=== PATIENT | female | born 1980 | race Caucasian/White ===

== ENCOUNTER 2020-10-18 08:55 | Emergency (ER) | payer OTHER ==
[2014-06-05 11:37] VITALS: BP 119/68
[2020-10-18] MEDS ORDERED: KETOROLAC 15 MG/ML VIAL. IVP ONE (11:04)
[2020-10-18] MEDS ORDERED: diazePAM 5 MG TABLET. PO ONE (12:21)
[2020-10-18] MEDS ORDERED: diazePAM 5 MG TABLET. ONE (12:24)
--- NOTE | 2020-10-18 12:25 | EKG ---
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
[2020-10-18] MEDS ORDERED: CONTRAST GIVEN. MC PRN (12:30)
[2020-10-18] MEDS: IOHEXOL 300 MG/ML 75 ML VIAL. IV ONE (12:30)
--- NOTE | 2020-10-18 12:39 | RAD ---
XR CHEST 1V 10/18/2020 12:30 PM INDICATION: Left lower quadrant abdominal pain COMPARISON: None available TECHNIQUE: Portable frontal view of the chest is provided. FINDINGS: The cardiomediastinal silhouette is within normal limits. Mild hilar prominence which may represent p rominent pulmonary vasculature versus lymphadenopathy. Patchy consolidative changes identified the me dial left lung base. There are no significant pleural effusions. There is no pulmonary vascular congestion. No pneumothora x. No suspicious osseous abnormality. IMPRESSION: 1. Patchy consolidative changes identified the medial left lung base may represent developing pulmona ry infiltrate versus atelectasis. 2. Bilateral hilar prominence could reflect prominent pulmonary vasculature versus lymphadenopathy. Electronically signed by: Tali Burns MD (10/18/2020 12:36 PM) [id number]
[2020-10-18 13:03] LABS: BACTERIA,URINE FEW /HPF (0-FEW); BILIRUBIN,URINE NEG (NEG); CLARITY,URINE CLEAR; COLOR,URINE YELLOW; GLUCOSE,URINE NEG (NEG); NITRITE,URINE NEG (NEG); SQUAMOUS EPITHELIAL CELL,UR FEW /LPF; UROBILINOGEN,URINE 0.2 mg/dL (0.2 mg/dL); WBC,URINE OCC /HPF (0-4)
--- NOTE | 2020-10-18 13:18 | RAD ---
EXAM: CT Abdomen and Pelvis with IV contrast INDICATION: Reason: LLQ PAIN. Patient also complained of left upper quadrant sharp pain and pain in t he shoulder and a. TECHNIQUE: Multi-detector row CT images were acquired from the lung bases through the abdomen and pel vis with the use of IV contrast. Sagittal and coronal images were acquired from the transaxial data. All CT scans performed at this facility utilize dose optimization techniques as appropriate to the ex am, including the following: Automated exposure control and adjustment of the mA and/or KV according to patient size (this includes techniques or standardized protocols for targeted exams where dose is indication/reason for exam). IV CONTRAST: Administered ORAL CONTRAST: Not administered COMPARISON: None FINDINGS: LOWER CHEST: Calcified granuloma in the medial left lung base is present. Small focus of mucus pluggi ng in the anterior basal left lower lobe. Mild mosaic attenuation to the left lung base. LIVER: Unremarkable BILIARY SYSTEM: Gallbladder is surgically absent. Bile ducts are not dilated. PANCREAS: Unremarkable SPLEEN: Unremarkable ADRENALS: Unremarkable KIDNEYS & URETERS: Unremarkable BLADDER: Unremarkable REPRODUCTIVE ORGANS: An IUD is present in the retroflexed uterus. GASTROINTESTINAL: No findings of bowel obstruction or perforation. There is spasm of the large bowel involving the proximal ascending and the distal descending and sigmoid colon, mimicking wall thickeni ng. No pericolonic soft tissue stranding. The appendix is normal. MESENTERY/PERITONEUM/RETROPERITONEUM: A surgical clip abuts the greater curvature of the stomach dist ally. This could represent a migrated surgical clips postcholecystectomy. VASCULAR: Unremarkable LYMPH NODES: No adenopathy OSSEOUS & SOFT TISSUES: Unremarkable IMPRESSION: Spasmed large bowel, mimicking wall thickening. Correlate for any evidence of colitis or enteritis. O therwise no acute findings in the abdomen or pelvis post cholecystectomy and IUD placement. No specif ic cause in particular for left upper quadrant abdominal pain Electronically signed by: Dillan Boyle MD (10/18/2020 1:15 PM) [id number]
[2020-10-18 13:27] LABS: U PREG PATIENT NEGATIVE (NEG)
[2020-10-18 13:50] LABS: BASO # 0.1 x10^3/uL (0.0-0.2); BASO % 1 % (0-3); EOS # 0.1 x10^3/uL (0.0-0.7); EOS % 1 % (0-3); HEMATOCRIT 42.8 % (36.0-47.0); HEMOGLOBIN 14.2 g/dL (12.0-15.5); LYMPH # 2.9 x10^3/uL (1.0-4.8); LYMPH % 25 % (24-48); MEAN CORPUSCULAR HEMOGLOBIN 34 pg (25-35); MEAN CORPUSCULAR HGB CONC 33 g/dL (31-37); MEAN CORPUSCULAR VOLUME 102 fL (79-100); MONO # 0.4 x10^3/uL (0.0-1.1); MONO % 4 % (0-9); NEUT # 8.1 x10^3uL (1.8-7.7); NEUT % 70 % (31-73); PLATELET COUNT 272 x10^3/uL (140-400); RED BLOOD COUNT 4.18 x10^6/uL (3.50-5.40); RED CELL DISTRIBUTION WIDTH 13.3 % (11.5-14.5); WHITE BLOOD COUNT 11.6 x10^3/uL (4.0-11.0)
--- NOTE | 2020-10-18 14:18 | PHYS DOC ---
Past History Past Medical History: No Pertinent History Past Surgical History: Appendectomy, Cholecystectomy Alcohol Use: None Drug Use: None General Adult EDM: Chief Complaint: CHEST PAIN HPI: HPI: Patient is a [age] year old [sex] who presents with [] Current Medications: Current Meds: Current Medications Medications (Trade) Dose Ordered Sig/Roxane Start Time Stop Time Status Last Admin Dose Admin Diazepam (Valium) 7.5 mg 1X ONCE 10/18/20 12:21 10/18/20 12:58 DC Info (Do NOT chart on this entry -- for MONITORING) 1 each PRN DAILY PRN 10/18/20 12:30 10/20/20 12:29 Iohexol (Omnipaque 300 Mg/ml) 75 ml 1X ONCE 10/18/20 12:30 10/18/20 12:31 DC Ketorolac Tromethamine (Toradol 15mg Vial) 15 mg 1X ONCE 10/18/20 11:04 10/18/20 12:18 DC Allergies: Allergies: Allergies Coded Allergies Type Severity Reaction Last Updated Verified venom-honey bee Allergy Severe Anaphylaxis 06/03/14 No Uncoded Allergies Type Severity Reaction Last Updated Verified CHERRIES Allergy Mild HIVES 06/03/14 COCONUT Allergy Mild HIVES 06/03/14 WALNUTS Allergy Mild Itching 06/05/14 Current Patient Data: Labs: Laboratory Tests Test 10/18/20 09:15 10/18/20 13:05 White Blood Count 11.6 x10^3/uL (4.0-11.0) H Red Blood Count 4.18 x10^6/uL (3.50-5.40) Hemoglobin 14.2 g/dL (12.0-15.5) Hematocrit 42.8 % (36.0-47.0) Mean Corpuscular Volume 102 fL (79-100) H Mean Corpuscular Hemoglobin 34 pg (25-35) Mean Corpuscular Hemoglobin Concent 33 g/dL (31-37) Red Cell Distribution Width 13.3 % (11.5-14.5) Platelet Count 272 x10^3/uL (140-400) Neutrophils (%) (Auto) 70 % (31-73) Lymphocytes (%) (Auto) 25 % (24-48) Monocytes (%) (Auto) 4 % (0-9) Eosinophils (%) (Auto) 1 % (0-3) Basophils (%) (Auto) 1 % (0-3) Neutrophils # (Auto) 8.1 x10^3uL (1.8-7.7) H Lymphocytes # (Auto) 2.9 x10^3/uL (1.0-4.8) Monocytes # (Auto) 0.4 x10^3/uL (0.0-1.1) Eosinophils # (Auto) 0.1 x10^3/uL (0.0-0.7) Basophils # (Auto) 0.1 x10^3/uL (0.0-0.2) D-Dimer (Keiko) 0.22 mg/L (0.00-0.50) Urine Collection Type Unknown Urine Color Yellow Urine Clarity Clear Urine pH 8.0 Urine Specific [place] 1.020 Urine Protein Neg (NEG-TRACE) Urine Glucose (UA) Neg mg/dL (NEG) Urine Ketones (Stick) Neg mg/dL (NEG) Urine Blood Trace (NEG) Urine Nitrite Neg (NEG) Urine Bilirubin Neg (NEG) Urine Urobilinogen Dipstick 0.2 mg/dL (0.2 mg/dL) Urine Leukocyte Esterase Neg (NEG) Urine RBC 3-5 /HPF (0-2) Urine WBC Occ /HPF (0-4) Urine Squamous Epithelial Cells Few /LPF Urine Bacteria Few /HPF (0-FEW) Urine Test Negative (NEG) Troponin I Quantitative < 0.017 ng/mL (0-0.055) EKG: EKG: [] Radiology/Procedures: Radiology/Procedures: [] Heart Score: Risk Factors: Risk Factors: DM, Current or recent (<one month) smoker, HTN, HLP, family history of CAD, obesity. Risk Scores: Score 0 - 3: 2.5% MACE over next 6 weeks - Discharge Home Score 4 - 6: 20.3% MACE over next 6 weeks - Admit for Clinical Observation Score 7 - 10: 72.7% MACE over next 6 weeks - Early Invasive Strategies Course & Med Decision Making: Course & Med Decision Making Pertinent Labs and Imaging studies reviewed. (See chart for details) DUE TO PROLONGED EMR DOWNTIME/HOSPITAL POLICY, PTS' FULL CHART (INCLUDING, HISTORY, ROS, PHYSICAL EXAM, IMPRESSION, IMAGING/LABS/ORDERS, DISPOSITION AND DISCHARGE PAPERS) -WAS DOCUMENTED VIA PAPER CHARTING. - PLEASE REFER TO PAPER DOCUMENTS FOR FULL INFORMATION REGARDING PTS' ED VISIT. Dragon Disclaimer: Dragon Disclaimer: This electronic medical record was generated, in whole or in part, using a voice recognition dictation system. Departure Departure: Impression: Primary Impression: Abdominal pain Additional Impressions: Atypical pneumonia Enteritis Disposition: 01 DC HOME SELF CARE/HOMELESS Condition: STABLE Referrals: DAVID LAWS (PCP) LEISA DUMONT DO Oct 18, 2020 14:18
[2020-10-18 14:36] LABS: ALBUMIN/GLOBULIN RATIO 1.2 (1.0-1.7); CALCIUM 9.1 mg/dL (8.5-10.1); CREATININE 0.7 mg/dL (0.6-1.0); GFR 93.2; POTASSIUM 3.8 mmol/L (3.5-5.1); TOTAL BILIRUBIN 0.2 mg/dL (0.2-1.0); TOTAL PROTEIN 7.4 g/dL (6.4-8.2)
== END 2020-10-18 14:35 | disposition home or self-care (01) ==
LOC: ER 08:55
DX: J18.9 Pneumonia, unspecified organism (principal); K52.9 Noninfective gastroenteritis and colitis, unspecified; Z90.49 Acquired absence of other specified parts of digestive tract; Z90.89 Acquired absence of other organs; Z91.030 Bee allergy status
CPT/HCPCS: 36415; 71045; 74177; 80053; 81001; 81025; 83690; 83880; 84484; 85025; 85379; 93005; 96374; 99284; J1885; Q9967